=== PATIENT | female | born 2000 ===

== ENCOUNTER 2023-12-06 10:30 | Outpatient (CLI) | payer OTHER | END 2023-12-06 11:00 | disposition home or self-care (01) | LOC: PPH VACUNA 10:30 | PROVIDERS: ATTEND Emergency Medicine Pediatric Emergency Medicine | DX: Z23 Encounter for immunization (principal) ==

== ENCOUNTER 2024-12-04 09:45 | Outpatient (CLI) | payer OTHER | END 2024-12-04 09:55 | disposition home or self-care (01) | LOC: PPH VACUNA 09:45 | PROVIDERS: ATTEND Emergency Medicine Pediatric Emergency Medicine | DX: Z23 Encounter for immunization (principal) ==